=== PATIENT | male | born 1990 | race Caucasian/White ===

== ENCOUNTER 2017-10-09 13:56 | Emergency (ER) | payer OTHER ==
[2017-10-09 14:02] VITALS: RESP 16
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
--- NOTE | 2017-10-09 14:54 | XR ---
Thoracic spine HISTORY: Pain and numbness 3 views of the thoracic spine Thoracic vertebral bodies show preserved height, alignment, and bone mineralization. There is multile marlene spondylosis. Loss of disc height at the intervertebral levels of the lower thoracic spine. There may be a spinal curvature. There is kyphosis present. IMPRESSION: Degenerative disc disease as described.
--- NOTE | 2017-10-09 14:55 | XR ---
Lumbosacral spine HISTORY: Chronic low back pain 5 views of lumbosacral spine and 6 images Suspect there is an S-shaped thoracic lumbar scoliosis. No evident spondylolysis or spondylolisthesis . Lumbar vertebral bodies show preserved height and bone mineralization. Mild loss of disc height at L2-3 with associated spondylosis. IMPRESSION: Scoliosis, degenerative disc disease, consider lumbar MRI.
[2017-10-09 15:28] VITALS: BP 148/75; PULSE 90; TEMP 98.2
== END 2017-10-09 15:28 | disposition home or self-care (01) ==
LOC: EC 13:56
DX: M51.16 Intervertebral disc disorders with radiculopathy, lumbar region (principal); F17.200 Nicotine dependence, unspecified, uncomplicated
CPT/HCPCS: 72070; 72110; 99283

== ENCOUNTER 2019-01-20 21:51 | Emergency (ER) | payer OTHER ==
[2019-01-20] MEDS ORDERED: SODIUM CHLORIDE 0.9% 1,000 ML IV STA (22:55)
--- NOTE | 2019-01-20 23:04 | ED ---
General Adult HPI - General Chief complaint: Chest Pain Stated complaint: Chest pressure Time Seen by Provider: 01/20/19 22:01 Source: patient Mode of arrival: ambulatory Limitations: no limitations - History of Present Illness Initial comments: 36-year-old male patient presents to the emergency department today for evaluation of chest pressure high blood pressure. Patient states that he was feeling unwell today which included some pain and pressure to his chest. States that he went to [facility] checked his blood pressure was elevated, checked it with a home monitor and it was elevated again. Patient states this made him nervous so presented here for further evaluation. Patient denies any cough. States he has been short of breath with this. Denies any fever or chills. He denies dizziness, weakness, nausea or sweats. Patient denies any recent rash, fever, chills, abdominal pain, diarrhea, constipation, back pain, numbness, tingling, hematuria, dysuria, urinary urgency, urinary frequency, headache, visual changes, or any other complaints. - Related Data Previous Rx's Medication Instructions Recorded Cyclobenzaprine [Flexeril] 10 mg PO TID PRN #15 tab 10/09/17 Hydrocodone/Acetaminophen [[place] 1 tab PO Q6HR PRN #12 tab 10/09/17 5-325] Ibuprofen [Motrin] 600 mg PO Q8HR PRN #30 tab 10/09/17 predniSONE 50 mg PO DAILY #5 tab 10/09/17 Allergies Allergy/AdvReac Type Severity Reaction Status Date / Time No Known Allergies Allergy Verified 01/20/19 21:56 Review of Systems ROS Statement: Those systems with pertinent positive or pertinent negative responses have been documented in the HPI. ROS Other: All systems not noted in ROS Statement are negative. Past Medical History Additional Past Medical History / Comment(s): back pain History of Any Multi-Drug Resistant Organisms: None Reported Past Surgical History: No Surgical Hx Reported Past Psychological History: No Psychological Hx Reported Smoking Status: Current every day smoker Past Alcohol Use History: None Reported Past Drug Use History: None Reported General Exam Limitations: no limitations General appearance: alert, in no apparent distress, other (Physical well- developed, well-nourished adult male patient in no acute distress. Vital signs upon presentation are temperature 98.2F, pulse 83, respirations 20, blood pressure 178/105, pulse ox 97% on room air.) Eye exam: Present: normal appearance, PERRL, EOMI. Absent: scleral icterus, conjunctival injection, periorbital swelling ENT exam: Present: normal exam, normal oropharynx, mucous membranes moist Respiratory exam: Present: normal lung sounds bilaterally. Absent: respiratory distress, wheezes, rales, rhonchi, stridor Cardiovascular Exam: Present: regular rate, normal rhythm, normal heart sounds. Absent: systolic murmur, diastolic murmur, rubs, gallop, clicks GI/Abdominal exam: Present: soft, normal bowel sounds. Absent: distended, tenderness, guarding, rebound, rigid Neurological exam: Present: alert, oriented X3, CN II-XII intact Psychiatric exam: Present: normal affect, normal mood Skin exam: Present: warm, dry, intact, normal color. Absent: rash Course Vital Signs 01/20/19 01/20/19 01/21/19 21:53 23:36 02:46 Temperature 98.2 F 98.1 F Pulse Rate 83 75 71 Respiratory 20 16 20 Rate Blood Pressure 178/105 136/86 128/99 O2 Sat by Pulse 97 96 97 Oximetry EKG Findings - EKG Comments: EKG Findings:: EKG obtained at 2200s is normal sinus rhythm with a ventricular rate of 82, CT interval 166, QRS duration 98, QT 352, QTc 4 left. No evidence of ST elevation or depression. Medical Decision Making - Medical Decision Making 36-year-old male patient presented to the emergency department today for evaluation of elevated blood pressure and chest pressure. Physical examination is unremarkable. Lungs are clear to auscultation with good air movement. EKG showed normal sinus rhythm. Labs reviewed and were unremarkable. Patient did have 2 troponins which were both negative. Chest x-ray showed no acute cardio pulmonary process. Upon reevaluation patient does report improvement of sy mptoms. Blood pressures have been satisfactory in the emergency department. He'll be discharged home at this time to follow-up with his primary care physician for recheck in 1-2 days. Return parameters discussed in detail. He verbalizes understanding and agrees with this plan. - Lab Data Result diagrams: 01/20/19 23:30 01/20/19 23:30 Lab Results 01/20/19 01/20/19 01/20/19 Range/Units 23:30 23:30 23:30 WBC 10.6 (3.8-10.6) k/uL RBC 5.30 (4.30-5.90) m/uL Hgb 15.0 (13.0-17.5) gm/dL Hct 46.7 (39.0-53.0) % MCV 88.0 (80.0-100.0) fL MCH 28.3 (25.0-35.0) pg MCHC 32.2 (31.0-37.0) g/dL RDW 12.5 (11.5-15.5) % Plt Count 299 (150-450) k/uL Neutrophils % 54 % Lymphocytes % 36 % Monocytes % 5 % Eosinophils % 2 % Basophils % 1 % Neutrophils # 5.8 (1.3-7.7) k/uL Lymphocytes # 3.8 (1.0-4.8) k/uL Monocytes # 0.5 (0-1.0) k/uL Eosinophils # 0.3 (0-0.7) k/uL Basophils # 0.1 (0-0.2) k/uL PT 10.3 (9.0-12.0) sec INR 1.0 (<1.2) APTT 28.2 (22.0-30.0) sec D-Dimer 0.32 (<0.60) mg/L FEU Sodium 138 (137-145) mmol/L Potassium 4.3 (3.5-5.1) mmol/L Chloride 105 (98-107) mmol/L Carbon Dioxide 23 (22-30) mmol/L Anion Gap 10 mmol/L BUN 16 (9-20) mg/dL Creatinine 0.80 (0.66-1.25) mg/dL Est GFR (CKD-EPI)AfAm >90 (>60 ml/min/1.73 sqM) Est GFR (CKD-EPI)NonAf >90 (>60 ml/min/1.73 sqM) Glucose 100 H (74-99) mg/dL Calcium 9.7 (8.4-10.2) mg/dL Magnesium 2.0 (1.6-2.3) mg/dL Total Bilirubin 0.2 (0.2-1.3) mg/dL AST 25 (17-59) U/L ALT 46 (21-72) U/L Alkaline Phosphatase 82 (38-126) U/L Troponin I (0.000-0.034) ng/mL Total Protein 7.1 (6.3-8.2) g/dL Albumin 4.2 (3.5-5.0) g/dL 01/20/19 01/21/19 Range/Units 23:30 01:22 WBC (3.8-10.6) k/uL RBC (4.30-5.90) m/uL Hgb (13.0-17.5) gm/dL Hct (39.0-53.0) % MCV (80.0-100.0) fL MCH (25.0-35.0) pg MCHC (31.0-37.0) g/dL RDW (11.5-15.5) % Plt Count (150-450) k/uL Neutrophils % % Lymphocytes % % Monocytes % % Eosinophils % % Basophils % % Neutrophils # (1.3-7.7) k/uL Lymphocytes # (1.0-4.8) k/uL Monocytes # (0-1.0) k/uL Eosinophils # (0-0.7) k/uL Basophils # (0-0.2) k/uL PT (9.0-12.0) sec INR (<1.2) APTT (22.0-30.0) sec D-Dimer (<0.60) mg/L FEU Sodium (137-145) mmol/L Potassium (3.5-5.1) mmol/L Chloride (98-107) mmol/L Carbon Dioxide (22-30) mmol/L Anion Gap mmol/L BUN (9-20) mg/dL Creatinine (0.66-1.25) mg/dL Est GFR (CKD-EPI)AfAm (>60 ml/min/1.73 sqM) Est GFR (CKD-EPI)NonAf (>60 ml/min/1.73 sqM) Glucose (74-99) mg/dL Calcium (8.4-10.2) mg/dL Magnesium (1.6-2.3) mg/dL Total Bilirubin (0.2-1.3) mg/dL AST (17-59) U/L ALT (21-72) U/L Alkaline Phosphatase (38-126) U/L Troponin I <0.012 <0.012 (0.000-0.034) ng/mL Total Protein (6.3-8.2) g/dL Albumin (3.5-5.0) g/dL - Radiology Data Radiology results: report reviewed, image reviewed Two-view x-ray of the chest is obtained. Report is reviewed in its entirety. Impression by Dr. Sevilla shows normal chest. Disposition Clinical Impression: Chest pain, Elevated blood pressure reading Disposition: HOME SELF-CARE Condition: Good Instructions (If sedation given, give patient instructions): Chest Pain (ED) Additional Instructions: Keep a log of blood pressures through primary care physician. Follow-up in one to 2 days for recheck. Return to the emergency department immediately for any new, worsening, or concerning symptoms. Is patient prescribed a controlled substance at d/c from ED?: No Referrals: Cordell Shay MD [REFERRING] - 1-2 days Time of Disposition: 02:18
[2019-01-20 23:43] LABS: Basophils # (A) 0.1 k/uL (0-0.2); Basophils % (A) 1 %; Eosinophils # (A) 0.3 k/uL (0-0.7); Eosinophils % (A) 2 %; HCT 46.7 % (39.0-53.0); Lymphocytes # (A) 3.8 k/uL (1.0-4.8); Lymphocytes % (A) 36 %; MCH 28.3 pg (25.0-35.0); MCHC 32.2 g/dL (31.0-37.0); Mean Platelet Volume 6.4; Monocytes # (A) 0.5 k/uL (0-1.0); Monocytes % (A) 5 %; Neutrophils # (A) 5.8 k/uL (1.3-7.7); Neutrophils % (A) 54 %; Platelet Count 299 k/uL (150-450); RDW 12.5 % (11.5-15.5); WBC 10.6 k/uL (3.8-10.6)
[2019-01-20 23:51] LABS: ALT 46 U/L (21-72); AST 25 U/L (17-59); African American GFR (CKD) >90 (>60 ml/min/1.73 sqM); Albumin 4.2 g/dL (3.5-5.0); Alkaline Phosphatase 82 U/L (38-126); Anion Gap 10 mmol/L; Blood Urea Nitrogen 16 mg/dL (9-20); Calcium 9.7 mg/dL (8.4-10.2); Carbon Dioxide 23 mmol/L (22-30); Chloride 105 mmol/L (98-107); Glucose 100 mg/dL (74-99); Potassium 4.3 mmol/L (3.5-5.1); Sodium 138 mmol/L (137-145); Total Bilirubin 0.2 mg/dL (0.2-1.3); Total Protein 7.1 g/dL (6.3-8.2)
[2019-01-20 23:57] LABS: D-Dimer 0.32 mg/L FEU (<0.60); Partial Thromboplastin Time 28.2 sec (22.0-30.0); Prothrombin Time 10.3 sec (9.0-12.0)
--- NOTE | 2019-01-21 00:21 | XR ---
EXAMINATION TYPE: XR chest 2V DATE OF EXAM: 01/21/2019 COMPARISON: NONE HISTORY: Chest pain TECHNIQUE: Frontal and lateral views of the chest are obtained. FINDINGS: Heart and mediastinum are normal. Lungs are clear. Diaphragm is normal. Bony thorax is int act. There are chest leads. IMPRESSION: Normal chest
[2019-01-21 02:47] VITALS: BP 128/99; PULSE 71; RESP 20; TEMP 98.1
== END 2019-01-21 02:47 | disposition home or self-care (01) ==
LOC: EC 21:51
DX: R07.89 Other chest pain (principal); R03.0 Elevated blood-pressure reading, without diagnosis of hypertension; R06.02 Shortness of breath; F17.200 Nicotine dependence, unspecified, uncomplicated
CPT/HCPCS: 36415; 71046; 80053; 83735; 84484; 85025; 85379; 85610; 85730; 93005; 96360; 96361; 99285

== ENCOUNTER 2019-05-13 22:54 | Emergency (ER) | payer OTHER ==
[2019-05-13] MEDS ORDERED: SODIUM CHLORIDE 0.9% 1,000 ML IV ONE (23:21)
--- NOTE | 2019-05-13 23:52 | XR ---
EXAMINATION TYPE: XR chest 1V portable DATE OF EXAM: 05/13/2019 COMPARISON: 01/21/2019 HISTORY: Chest pain TECHNIQUE: Single view FINDINGS: There is some infiltrate at both lung bases and more on the left side. There is poor inspir ation. There is no heart failure. Heart size is normal. There is no pleural effusion. IMPRESSION: Bilateral basilar pneumonia and atelectasis that is new compared to old exam. No heart fa ilure.
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
[2019-05-13 23:58] LABS: HGB 14.8 gm/dL (13.0-17.5); MCH 29.3 pg (25.0-35.0); MCHC 34.4 g/dL (31.0-37.0); MCV 85.2 fL (80.0-100.0); Mean Platelet Volume 7.4; Platelet Count 180 k/uL (150-450); RBC 5.05 m/uL (4.30-5.90); RDW 12.3 % (11.5-15.5); WBC 6.7 k/uL (3.8-10.6)
[2019-05-14 00:09] LABS: ALT 52 U/L (4-49); AST 49 U/L (17-59); African American GFR (CKD) >90 (>60 ml/min/1.73 sqM); Albumin 3.7 g/dL (3.5-5.0); Alkaline Phosphatase 66 U/L (38-126); Anion Gap 11 mmol/L; Blood Urea Nitrogen 21 mg/dL (9-20); Calcium 8.6 mg/dL (8.4-10.2); Carbon Dioxide 23 mmol/L (22-30); Chloride 99 mmol/L (98-107); Glucose 122 mg/dL (74-99); Non-African American GFR(CKD) >90 (>60 ml/min/1.73 sqM); Sodium 133 mmol/L (137-145); Total Bilirubin 0.4 mg/dL (0.2-1.3); Total Protein 6.4 g/dL (6.3-8.2)
[2019-05-14 00:14] LABS: INR 1.1 (<1.2); Partial Thromboplastin Time 28.9 sec (22.0-30.0); Prothrombin Time 11.3 sec (9.0-12.0)
[2019-05-14 00:18] LABS: Monocytes # (M) 0.27 k/uL (0-1.0); Neutrophils # (M) 5.63 k/uL (1.3-7.7); Neutrophils % (M) 84 %; Nucleated Red Blood Cells 0 /100 WBC (0-0); Total Cells Counted 100
[2019-05-14 00:22] LABS: D-Dimer 1.31 mg/L FEU (<0.60)
[2019-05-14 00:56] LABS: Appearance,Urine Clear (Clear); Bilirubin,Urine Negative (Negative); Blood,Urine Negative (Negative); Color,Urine Yellow; Glucose,Urine (UA) Negative (Negative); Ketones,Urine Negative (Negative); Leukocyte Esterase,Urine Negative (Negative); Nitrite,Urine Negative (Negative); PH, Urine 5.5 (5.0-8.0); Protein,Urine Trace (Negative); Urobilinogen,Urine <2.0 mg/dL (<2.0)
--- NOTE | 2019-05-14 01:15 | CT ---
EXAMINATION TYPE: CT chest angio for PE DATE OF EXAM: 05/14/2019 COMPARISON: None HISTORY: PE possible, positive d-dimer CT DLP: 755.2 mGycm Automated exposure control for dose reduction was used. CONTRAST: Performed with IV Contrast, patient injected with 95 mL of Isovue 370. Multiple axial sections were obtained from the thoracic inlet to the diaphragm with intravenous contr ast. There are 3-D post processed images. There is no mediastinal adenopathy. Thoracic aorta is intact. There is no aneurysm or dissection. The re are no hilar masses. There is normal contrast opacification of the pulmonary arteries. There are n o filling defects. There is no pleural effusion. There is small hiatal hernia. There is some patchy l inear density at the lung base on the left side. The bony thorax is intact. There is mild elevation of the left diaphragm. IMPRESSION: No evidence of pulmonary embolism. Patchy atelectasis left lower lobe and lingula left upper lobe. Left lower lobe pneumonia is also pos sible.
[2019-05-14] MEDS ORDERED: AZITHROMYCIN 500 MG TAB PO STA (01:18)
[2019-05-14 01:45] VITALS: BP 108/69; PULSE 68; RESP 16; TEMP 99.6
== END 2019-05-14 01:53 | disposition home or self-care (01) ==
LOC: EC 22:54
DX: J18.9 Pneumonia, unspecified organism (principal); R55 Syncope and collapse; F17.200 Nicotine dependence, unspecified, uncomplicated
CPT/HCPCS: 36415; 93005; 85379; 80053; 84484; 85025; 85610; 85730; 81003; 71045; 71275; 99284; 96365; 96361; J0696; Q9967

== ENCOUNTER 2022-02-14 23:04 | Emergency (ER) | payer OTHER ==
[2022-02-14 23:21] VITALS: BP 190/99; PULSE 79; RESP 17; TEMP 98.1
[2022-02-14] MEDS ORDERED: AMOXIC-POT CLAV 875MG STARTER PACK 2 TAB BTL PO STA (23:40)
[2022-02-14] MEDS ORDERED: ACET/COD 300 MG/30 MG STARTER PACK 6 TAB BTL PO STA (23:40)
[2022-02-14] MEDS ORDERED: Acetaminophen-Codeine 300-30mg TAB PO STA (23:40)
[2022-02-14] MEDS ORDERED: IBUPROFEN 800 MG TAB PO STA (23:40)
[2022-02-14] MEDS ORDERED: IBUPROFEN 600 MG STARTER PACK 4 TAB BTL PO STA (23:40)
--- NOTE | 2022-02-14 23:40 | ED ---
ENT HPI - General Chief complaint: Dental/Oral Stated complaint: Dental Pain Time Seen by Provider: 02/14/22 23:24 Source: patient, RN notes reviewed, old records reviewed Mode of arrival: ambulatory Limitations: no limitations - History of Present Illness Initial comments: This is a 31-year-old male to the emergency department for evaluation today. Davidson Sanchez for evaluation regarding dental pain and dental caries history of dental caries history of "disease. Patient has poor dental care does not follow with dentist. Severe pain and swelling currently. Patient has no fevers. Able to eat and drink no other complaints MD complaint: sore throat, difficulty swallowing -: days(s) Severity: moderate Severity scale (1-10): 7 Consistency: constant Improves with: none, pressure Worsens with: none Context- Dental: history of dental caries Associated Symptoms: other (0) - Related Data Previous Rx's Medication Instructions Recorded Cyclobenzaprine [Flexeril] 10 mg PO TID PRN #15 tab 10/09/17 Hydrocodone/Acetaminophen [[place] 1 tab PO Q6HR PRN #12 tab 10/09/17 5-325] Ibuprofen [Motrin] 600 mg PO Q8HR PRN #30 tab 10/09/17 predniSONE 50 mg PO DAILY #5 tab 10/09/17 Azithromycin [Zithromax Z-pack (6 250 mg PO DIRECTED #6 tab 05/14/19 tabs)] Allergies Allergy/AdvReac Type Severity Reaction Status Date / Time No Known Allergies Allergy Verified 02/14/22 23:21 Review of Systems ROS Statement: Those systems with pertinent positive or pertinent negative responses have been documented in the HPI. ROS Other: All systems not noted in ROS Statement are negative. Past Medical History Additional Past Medical History / Comment(s): back pain History of Any Multi-Drug Resistant Organisms: None Reported Past Surgical History: No Surgical Hx Reported Past Psychological History: No Psychological Hx Reported Smoking Status: Vaper Past Alcohol Use History: None Reported Past Drug Use History: None Reported General Exam General appearance: alert, in no apparent distress Head exam: Present: atraumatic, normocephalic, normal inspection Eye exam: Present: normal appearance, PERRL, EOMI. Absent: scleral icterus, conjunctival injection, periorbital swelling ENT exam: Present: normal exam, mucous membranes moist Neck exam: Present: normal inspection. Absent: tenderness, meningismus, lymphadenopathy Respiratory exam: Present: normal lung sounds bilaterally. Absent: respiratory distress, wheezes, rales, rhonchi, stridor Cardiovascular Exam: Present: regular rate, normal rhythm, normal heart sounds. Absent: systolic murmur, diastolic murmur, rubs, gallop, clicks GI/Abdominal exam: Present: soft, normal bowel sounds. Absent: distended, tenderness, guarding, rebound, rigid Extremities exam: Present: normal inspection, full ROM, normal capillary refill. Absent: tenderness, pedal edema, joint swelling, calf tenderness Back exam: Present: normal inspection Neurological exam: Present: alert, oriented X3, CN II-XII intact Psychiatric exam: Present: normal affect, normal mood Skin exam: Present: warm, dry, intact, normal color. Absent: rash Course Vital Signs 02/14/22 23:18 Temperature 98.1 F Pulse Rate 79 Respiratory 17 Rate Blood Pressure 190/99 O2 Sat by Pulse 98 Oximetry - Reevaluation(s) Reevaluation #1: 02/14/22 Medical records reviewed Reevaluation #2: 02/14/22 Symptoms improved here in the ER patient informed results questions are answered Medical Decision Making - Medical Decision Making 31 male to the ER for evaluation regarding dental caries and dental pain and dental abscess. History of same. Multiple tooth extractions in the past. Patient does have follow-up care will place on antibiotics pain control can be discharged home Disposition Clinical Impression: Dental caries, Dental abscess, Fracture of tooth Disposition: HOME SELF-CARE Condition: Good Instructions (If sedation given, give patient instructions): Dental Abscess (ED), Toothache (ED) Is patient prescribed a controlled substance at d/c from ED?: No Referrals: Ekaterina Gutierrez MD [Primary Care Provider] - 1-2 days Time of Disposition: 23:50
[2022-02-14] MEDS ORDERED: dexAMETHasone 2 MG TAB PO STA (23:41)
== END 2022-02-15 00:20 | disposition home or self-care (01) ==
LOC: EC 23:04
DX: S02.5XXA Fracture of tooth (traumatic), initial encounter for closed fracture (principal); K02.9 Dental caries, unspecified; F17.290 Nicotine dependence, other tobacco product, uncomplicated; X58.XXXA Exposure to other specified factors, initial encounter
CPT/HCPCS: 99282; J8540

== ENCOUNTER 2022-09-16 00:25 | Emergency (ER) | payer OTHER ==
[2022-09-16 00:29] VITALS: BP 175/118; PULSE 84; RESP 18; TEMP 97.7
[2022-09-16] MEDS ORDERED: dexAMETHasone 2 MG TAB PO STA (00:48)
[2022-09-16] MEDS ORDERED: ACET/COD 300 MG/30 MG STARTER PACK 6 TAB BTL PO STA (00:48)
[2022-09-16] MEDS ORDERED: AMOXIC-POT CLAV 875-125MG 1 EACH TAB PO STA (00:48)
[2022-09-16] MEDS ORDERED: HYDROcodone/APAP 5-325MG 1 EACH TAB PO STA (00:48)
--- NOTE | 2022-09-16 00:50 | ED ---
General Adult HPI - General Chief complaint: Dental/Oral Stated complaint: Toothache Time Seen by Provider: 09/16/22 00:28 Source: patient, RN notes reviewed, old records reviewed Mode of arrival: ambulatory Limitations: no limitations - History of Present Illness Initial comments: Patient is a 32-year-old male who presents emergency Department complaining of tooth pain. Has chronic dental caries and tooth pain. He is due to have his teeth pulled in 10 days. Has been dealing with worsening pain for the last 3-5 days. Has been seen here previously for similar complaints. Denies any difficulty swallowing or breathing. Denies any fevers. Denies any chest pain, shortness of breath, abdominal pain. Denies any headaches. Has no other acute complaints at this time. Presents over concern for worsening tooth pain and tooth infection. - Related Data Previous Rx's Medication Instructions Recorded Cyclobenzaprine [Flexeril] 10 mg PO TID PRN #15 tab 10/09/17 Hydrocodone/Acetaminophen [[place] 1 tab PO Q6HR PRN #12 tab 10/09/17 5-325] Ibuprofen [Motrin] 600 mg PO Q8HR PRN #30 tab 10/09/17 predniSONE 50 mg PO DAILY #5 tab 10/09/17 Azithromycin [Zithromax Z-pack (6 250 mg PO DIRECTED #6 tab 05/14/19 tabs)] Amoxic-Pot Clav 875-125Mg 1 tab PO BID 7 Days #14 tab 09/16/22 [Augmentin 875-125] Allergies Allergy/AdvReac Type Severity Reaction Status Date / Time No Known Allergies Allergy Verified 02/14/22 23:21 Review of Systems ROS Statement: Those systems with pertinent positive or pertinent negative responses have been documented in the HPI. Review of Systems: CONST: Denies fever EYES: Denies blurry vision ENT: Endorses dental pain. C/V: Denies Chest pain RESP: Denies shortness of breath GI: Denies abdominal pain : Denies dysuria SKIN: Denies rash. MSK: Denies joint pain. NEURO: Denies headache ROS Other: All systems not noted in ROS Statement are negative. Past Medical History Additional Past Medical History / Comment(s): back pain History of Any Multi-Drug Resistant Organisms: None Reported Past Surgical History: No Surgical Hx Reported Past Psychological History: No Psychological Hx Reported Smoking Status: Vaper Past Alcohol Use History: None Reported Past Drug Use History: None Reported General Exam - General Exam Comments Initial Comments: General: Appears in no acute distress. HEAD: Normal with no signs of head trauma. EYES: EOMI. ENT: Hearing grossly intact. No stridor. Erythematous gumlines on the left upper and lower teeth. No obvious abscess present. No fluctuance present. No trismus. No stridor. Tolerating oral secretions. Uvula midline. No posterior oropharyngeal swelling. No floor of the mouth swelling. RESPIRATORY: No respiratory distress. C/V: Regular rate and rhythm. ABD: Abdomen is nondistended. EXT: No obvious deformity. SKIN: No rashes or lesions observed on exposed skin. NEURO: Alert and oriented. Limitations: no limitations Course Vital Signs 09/16/22 00:27 Temperature 97.7 F Pulse Rate 84 Respiratory 18 Rate Blood Pressure 175/118 O2 Sat by Pulse 97 Oximetry Medical Decision Making - Medical Decision Making Was pt. sent in by a medical professional or institution (, PA, MILLSTONE CLEANER, urgent care, hospital, or penitentiary...) When possible be specific @ -No Did you speak to anyone other than the patient for history (EMS, parent, family, police, friend...)? What history was obtained from this source @ -No Did you review nursing and triage notes (agree or disagree)? Why? @ -I reviewed and agree with nursing and triage notes Were old charts reviewed (outside hosp., previous admission, EMS record, old EKG, old radiological studies, urgent care reports/EKG's, penitentiary records)? Report findings @ -No old charts were reviewed Differential Diagnosis (chest pain, altered mental status, abdominal pain women, abdominal pain men, vaginal bleeding, weakness, fever, dyspnea, syncope, headache, dizziness, GI bleed, back pain, seizure, CVA, palpatations, mental health, musculoskeletal)? @ -Tooth abscess, toothache, Tomer angina, dental caries, this list is not all-inclusive. EKG interpreted by me (3pts min.). @ -None done X-rays interpreted by me (1pt min.). @ -None done CT interpreted by me (1pt min.). @ -None done U/S interpreted by me (1pt. min.). @ -None done What testing was considered but not performed or refused? (CT, X-rays, U/S, labs)? Why? @ -None What meds were considered but not given or refused? Why? @ -None Did you discuss the management of the patient with other professionals (professionals i.e. , PA, MILLSTONE CLEANER, lab, RT, psych nurse, social media developer, senior wind turbine technician, teacher, senior grants officer, supportive employment case manager)? Give summary @ -No Was smoking cessation discussed for >3mins.? @ -No Was critical care preformed (if so, how long)? @ -No Were there social determinants of health that impacted care today? How? (Homelessness, low income, unemployed, alcoholism, drug addiction, transportation, low edu. Level, literacy, decrease access to med. care, group home, rehab)? @ -No Was there de-escalation of care discussed even if they declined (Discuss DNR or withdrawal of care, Hospice)? DNR status @ -No What co-morbidities impacted this encounter? (DM, HTN, Smoking, COPD, CAD, Cancer, CVA, ARF, Chemo, Hep., AIDS, mental health diagnosis, sleep apnea, morbid obesity)? @ -Dental caries, chronic toothache Was patient admitted / discharged? Hospital course, mention meds given and route, prescriptions, significant lab abnormalities, going to OR and other pertinent info. @ -Based on the patient's presentation and physical exam, presents with acute on chronic dental pain. Has significant dental caries which are chronic. He is due to have teeth removed in 1-2 weeks. Is tolerating oral secretions. No stridor. Exam is remarkable also for some erythematous gums as well as poor dentition and dental caries. I discussed the findings with the patient. I have no concern for worsening infection at this time including Tomer angina. Patient will be started empirically on Augmentin as well as given a dose of steroids as well as Spray. He will be sent home with a Tylenol 3 starter pack, as well as antibiotics. Recommended strict return precautions. He is in agreement this plan. Discussed that he needs to follow up with dentist. I will provide the patient with a prescription for Augmentin. I instructed the patient to follow up with their PCP in the next 1-3 days . I explained that the patient should return to the emergency department if they experience any worsening symptoms. Strict return precautions were discussed with the patient. The patient expressed understanding of these instructions. I answered all questions that the patient had. The patient was discharged home in good condition with their prescriptions and follow up information. Undiagnosed new problem with uncertain prognosis? @ -No Drug Therapy requiring intensive monitoring for toxicity (Heparin, Nitro, Insulin, Cardizem)? @ -No Were any procedures done? @ -No Diagnosis/symptom? @ -Toothache, dental caries Acute, or Chronic, or Acute on Chronic? @ -Acute on chronic Uncomplicated (without systemic symptoms) or Complicated (systemic symptoms)? @ -Uncomplicated Side effects of treatment? @ -No Exacerbation, Progression, or Severe Exacerbation? @ -No Poses a threat to life or bodily function? How? (Chest pain, [place], [place], pneumonia, PE, COPD, DKA, ARF, appy, cholecystitis, CVA, Diverticulitis, Homicidal, Suicidal, threat to staff... and all critical care pts) @ -No Disposition Clinical Impression: Toothache, Dental caries Disposition: HOME SELF-CARE Condition: Good Instructions (If sedation given, give patient instructions): Toothache (ED) Prescriptions: Amoxic-Pot Clav 875-125Mg [Augmentin 875-125] 1 tab PO BID 7 Days #14 tab Is patient prescribed a controlled substance at d/c from ED?: No Referrals: Ekaterina Gutierrez MD [Primary Care Provider] - 1-2 days Time of Disposition: 00:49
== END 2022-09-16 01:00 | disposition home or self-care (01) ==
LOC: EC 00:25
DX: K02.9 Dental caries, unspecified (principal); K08.89 Other specified disorders of teeth and supporting structures; F17.290 Nicotine dependence, other tobacco product, uncomplicated
CPT/HCPCS: 99282; J8540

== ENCOUNTER 2024-07-14 23:26 | Emergency (ER) | payer SELFPAY ==
[2024-07-14 23:31] VITALS: RESP 18; TEMP 97.8
[2024-07-14] MEDS: AMOXIC-POT CLAV 875-125MG 1 EACH TAB PO STA (23:59)
[2024-07-15] MEDS: cloNIDine HCL 0.1 MG TAB PO STA
[2024-07-15] MEDS: KETOROLAC 15 MG/ML 1 ML VIAL IM STA
[2024-07-15] MEDS: Acetaminophen-Codeine 300-30mg TAB PO STA (00:47)
[2024-07-15 01:31] VITALS: BP 162/109; PULSE 88
--- NOTE | 2024-07-15 01:32 | ED ---
ENT HPI - General Chief complaint: Dental/Oral Stated complaint: Dental pain Time Seen by Provider: 07/14/24 23:32 Source: patient Mode of arrival: ambulatory Limitations: no limitations - History of Present Illness Initial comments: 34-year-old male presenting with chief complaint of dental pain. Patient has history of multiple dental caries and fractured teeth. He does not currently have dental insurance. He is having pain to the right side of his mouth with some swelling. He is having no difficulty breathing or swallowing. No fever. No difficulty opening his mouth. Pain started yesterday and increased today - Related Data Previous Rx's Medication Instructions Recorded Cyclobenzaprine [Flexeril] 10 mg PO TID PRN #15 tab 10/09/17 Hydrocodone/Acetaminophen [[place] 1 tab PO Q6HR PRN #12 tab 10/09/17 5-325] Ibuprofen [Motrin] 600 mg PO Q8HR PRN #30 tab 10/09/17 predniSONE 50 mg PO DAILY #5 tab 10/09/17 Azithromycin [Zithromax Z-pack (6 250 mg PO DIRECTED #6 tab 05/14/19 tabs)] Amoxic-Pot Clav 875-125Mg 1 tab PO BID 7 Days #14 tab 09/16/22 [Augmentin 875-125] Amoxic-Pot Clav 875-125Mg 1 tab PO BID 7 Days #14 tab 07/15/24 [Augmentin 875-125] Allergies Allergy/AdvReac Type Severity Reaction Status Date / Time No Known Allergies Allergy Verified 07/14/24 23:30 Review of Systems ROS Statement: Those systems with pertinent positive or pertinent negative responses have been documented in the HPI. ROS Other: All systems not noted in ROS Statement are negative. Past Medical History Additional Past Medical History / Comment(s): back pain History of Any Multi-Drug Resistant Organisms: None Reported Past Surgical History: No Surgical Hx Reported Past Psychological History: No Psychological Hx Reported Smoking Status: Vaper Past Alcohol Use History: None Reported Past Drug Use History: None Reported General Exam Limitations: no limitations General appearance: alert, in no apparent distress Head exam: Present: atraumatic, normocephalic, normal inspection Eye exam: Present: normal appearance, EOMI Expanded Mouth exam: Present: normal external inspection Teeth exam: Present: dental caries, fractured tooth #, dental tenderness #, gingival enlargement Throat exam: normal inspection Neck exam: Present: normal inspection. Absent: meningismus Respiratory exam: Absent: respiratory distress, stridor Cardiovascular Exam: Present: regular rate Neurological exam: Present: alert, oriented X3 Psychiatric exam: Present: normal affect, normal mood Skin exam: Present: warm, dry Course Vital Signs 07/14/24 23:27 Temperature 97.8 F Pulse Rate 94 Respiratory 18 Rate Blood Pressure 206/100 O2 Sat by Pulse 97 Oximetry Medical Decision Making - Medical Decision Making Was pt. sent in by a medical professional or institution (, SHARI, INTERNAL AUDIT MANAGER, urgent care, hospital, or intermediate...) When possible be specific @ -No Did you speak to anyone other than the patient for history (EMS, parent, family, police, friend...)? What history was obtained from this source @ -No Did you review nursing and triage notes (agree or disagree)? Why? @ -I reviewed and agree with nursing and triage notes Were old charts reviewed (outside hosp., previous admission, EMS record, old EKG, old radiological studies, urgent care reports/EKG's, intermediate records)? Report findings @ -No old charts were reviewed Differential Diagnosis (chest pain, altered mental status, abdominal pain women, abdominal pain men, vaginal bleeding, weakness, fever, dyspnea, syncope, headache, dizziness, GI bleed, back pain, seizure, CVA, palpatations, mental health, musculoskeletal)? @ -Differential includes dental pain, dental abscess, Tomer's angina, not an all-inclusive list EKG interpreted by me (3pts min.). @ -As above X-rays interpreted by me (1pt min.). @ -None done CT interpreted by me (1pt min.). @ -None done U/S interpreted by me (1pt. min.). @ -None done What testing was considered but not performed or refused? (CT, X-rays, U/S, labs)? Why? @ -None What meds were considered but not given or refused? Why? @ -None Did you discuss the management of the patient with other professionals (lucila huerta i.eSHARI Barron Dr[address] INTERNAL AUDIT MANAGER, lab, RT, psych nurse, nephrology social worker, block captain, teacher, nuclear officer, pillowcase folder)? Give summary @ -No Was smoking cessation discussed for >3mins.? @ -No Was critical care preformed (if so, how long)? @ -No Were there social determinants of health that impacted care today? How? (Homelessness, low income, unemployed, alcoholism, drug addiction, transportation, low edu. Level, literacy, decrease access to med. care, custodial, rehab)? @ -No Was there de-escalation of care discussed even if they declined (Discuss DNR or withdrawal of care, Hospice)? DNR status @ -No What co-morbidities impacted this encounter? (DM, HTN, Smoking, COPD, CAD, Cancer, CVA, ARF, Chemo, Hep., AIDS, mental health diagnosis, sleep apnea, morbid obesity)? @ -None Was patient admitted / discharged? Hospital course, mention meds given and route, prescriptions, significant lab abnormalities, going to OR and other pertinent info. @ -34-year-old male presented with chief complaint of dental pain. He has history of multiple dental caries and fractured teeth. On examination there is poor dentition with concern for possible abscess. Patient will be treated with Augmentin. Additionally the patient's blood pressure is quite high at 206/100. Patient is supposed to be on blood pressure medication but he has stopped taking any does not remember what he is supposed to be on. He states that it has been "a while" since he has last seen his PCP. Patient was treated with pain medication and Augmentin as well as clonidine 0.1 mg. They observe the patient and his blood pressure did come down to 169/109. Patient is having no symptoms indicative of hypertensive crisis including no headache, chest pain, difficulty breathing, abdominal pain, blurred vision. He feels well at this time. I stressed to him the importance of following up with a PCP and getting his blood pressure under control. He conveys verbal understanding. Follow-up with PCP. Report back to ER with any new or worsening symptoms. Discussed return parameters and answered all questions. Patient conveyed verbal understanding and agreed to the plan. I discussed this case in detail with my attending Dr. Lewis Undiagnosed new problem with uncertain prognosis? @ -No Drug Therapy requiring intensive monitoring for toxicity (Heparin, Nitro, Insulin, Cardizem)? @ -No Were any procedures done? @ -No Diagnosis/symptom? @ -Dental abscess Acute, or Chronic, or Acute on Chronic? @ -Acute Uncomplicated (without systemic symptoms) or Complicated (systemic symptoms)? @ -Uncomplicated Side effects of treatment? @ -No Exacerbation, Progression, or Severe Exacerbation? @ -No Poses a threat to life or bodily function? How? (Chest pain, [place], [place], pneumonia, PE, COPD, DKA, ARF, appy, cholecystitis, CVA, Diverticulitis, Homicidal, Suicidal, threat to staff... and all critical care pts) @ -Unlikely Diagnosis/symptom? @Hypertension Acute, or Chronic, or Acute on Chronic? @Chronic Uncomplicated (without systemic symptoms) or Complicated (systemic symptoms)? @Uncomplicated Side effects of treatment? @None Exacerbation, Progression, or Severe Exacerbation] @No Poses a threat to life or bodily function? @Potential if he does not gain control of his blood pressure Disposition Clinical Impression: Dental abscess, Toothache Disposition: HOME SELF-CARE Condition: Good Instructions (If sedation given, give patient instructions): Dental Abscess (ED) Additional Instructions: Please follow up with the [facility] dental clinic. [facility] [place] [address]. Phone number for new patients or [phone] for existing patients. Follow-up with PCP, it is very important that you get your blood pressure under control. Report back to ER with any new or worsening symptoms. Take Motrin and Tylenol as needed for pain control. Take medication as prescribed. Prescriptions: Amoxic-Pot Clav 875-125Mg [Augmentin 875-125] 1 tab PO BID 7 Days #14 tab Is patient prescribed a controlled substance at d/c from ED?: No Referrals: Ekaterina Gutierrez MD [Primary Care Provider] - 1-2 days Time of Disposition: 01:32
== END 2024-07-15 01:37 | disposition home or self-care (01) ==
LOC: EC 23:26
DX: K04.7 Periapical abscess without sinus (principal); I10 Essential (primary) hypertension; F17.290 Nicotine dependence, other tobacco product, uncomplicated
CPT/HCPCS: 99282; 96372; J1885